=== PATIENT | male | born 1950 | race Caucasian/White ===

== ENCOUNTER → 2020-10-10 | Day surgery (SDC) | payer MEDICARE, MEDICAID ==
[~2020-10-10] MED LIST: ACETAMINOPHEN 325 MG TABLET PO PRN; ASPI-728 PO; ASPIRIN 81 MG CHEWABLE TABLET PO SCH; ATOR20TA86 PO; ATOR40TA28 PO; ATORVASTATIN CALCIUM 40 MG TABLET PO SCH; CALC-1038 PO; CARVEDILOL 12.5 MG TABLET PO SCH; CHL25 PO; CHOL100018 PO; DOCUSATE SODIUM 100 MG CAPSULE PO SCH; EMPA25TA PO; FAMOTIDINE 20 MG TABLET PO SCH; GLIM2 PO; GLUCAGON,HUMAN RECOMBINANT 1 MG VIAL IM PRN; HEPARIN SODIUM,PORCINE 5,000 UNITS/ML VIAL SQ SCH; ICOS1CAP PO; INSU100I3 SQ; INSU3INS9 SQ; INSULIN LISPRO 100 UNITS/ML SQ PRN; LORA-999 PO; LOSA50TA37 PO; METF-960 PO; METO50 PO; MORPHINE SULFATE 2 MG/ML SYRINGE IVP PRN; SODIUM CHLORIDE 0.45% 1,000 ML IV ONE; TAMS-13 PO; TAMSULOSIN HCL 0.4 MG CAPSULE PO SCH; TICA90TA PO; TICAGRELOR 90 MG TABLET PO SCH
[2020-10-22 10:36] LABS: BASOPHILS % (AUTO) 0.2 % (0.0-2.0); EOSINOPHILS % (AUTO) 0.9 % (1.0-6.0); HEMATOCRIT 41.1 % (41-53); HEMOGLOBIN 13.7 g/dL (13.5-17.5); LYMPHOCYTES # (AUTO) 0.9 K/uL (1.0-4.8); LYMPHOCYTES % (AUTO) 15.5 % (22.0-44.0); MEAN CORPUSCULAR HEMOGLOBIN 31.8 pg (26.0-34.0); MEAN CORPUSCULAR HGB CONC 33.3 G/dL (31.0-37.0); MEAN CORPUSCULAR VOLUME 96 fL (80-100); MONOCYTES # (AUTO) 0.3 K/uL (0.1-1.0); MONOCYTES % (AUTO) 5.7 % (2.0-9.0); NEUTROPHILS # (AUTO) 4.5 K/uL (1.8-7.7); NEUTROPHILS % (AUTO) 77.7 % (40.0-70.0); PLATELET COUNT (AUTO) 107 K/uL (150-450); RED CELL DISTRIBUTION WIDTH 12.9 % (11.5-14.5)
[2020-10-22 10:58] LABS: ALBUMIN 2.7 g/dL (3.4-5.0); BILIRUBIN,TOTAL 0.8 mg/dL (0.1-1.0); CALCIUM, TOTAL 7.9 mg/dL (8.8-10.5); CREATININE 1.4 mg/dL (0.60-1.30); POTASSIUM 4.9 mmol/L (3.5-5.1); TOTAL PROTEIN, SERUM 5.8 g/dL (6.4-8.2)
== END | disposition home or self-care (01) ==
LOC: CATHLAB 09:02
PROVIDERS: ATTEND Internal Medicine Interventional Cardiology
DX: R94.39 Abnormal result of other cardiovascular function study (principal); Z53.8 Procedure and treatment not carried out for other reasons; I25.10 Atherosclerotic heart disease of native coronary artery without angina pectoris; I12.9 Hypertensive chronic kidney disease with stage 1 through stage 4 chronic kidney disease, or unspecified chronic kidney disease; N18.30 Chronic kidney disease, stage 3 unspecified; E11.22 Type 2 diabetes mellitus with diabetic chronic kidney disease; Z82.49 Family history of ischemic heart disease and other diseases of the circulatory system; Z83.3 Family history of diabetes mellitus; Z79.4 Long term (current) use of insulin; Z79.899 Other long term (current) drug therapy; Z95.5 Presence of coronary angioplasty implant and graft